=== PATIENT | male | born 1950 | race Caucasian/White ===

== ENCOUNTER 2018-09-03 18:24 | Emergency (ER) | payer MEDICARE ==
[2018-09-03 19:55] LABS: #Basophils 0.1 thou/uL (0.0-0.2); #Eosinphils 0.3 thou/uL (0.0-0.7); #Lymphocytes 1.9 thou/uL (1.20-3.40); #Monocytes 0.9 thou/uL (0.11-0.59); #Neutrophils 5.6 thou/uL (1.40-6.50); %Eosinophils 2.9 % (0.0-10.0); %Lymphocytes 22.3 % (21.0-51.0); %Monocytes 10.1 % (0.0-10.0); %Neutrophils 63.7 % (42.0-75.0); Hemoglobin 14.2 g/dL (14.0-18.0); Mean Corpuscular HGB CONC 32.5 g/dL (32.0-36.0); Mean Corpuscular Hemoglobin 28.4 pg (27.0-31.0); Mean Corpuscular Volume 87.2 fL (78.0-98.0); Mean Platelet Volume 7.1 fL (7.4-10.4); Platelet Count 286 thou/uL (130-400); RBC Distribution Width 13.1 % (11.5-14.5); White Blood Cell (WBC) Count 8.7 thou/uL (4.8-10.8)
[2018-09-03 20:09] LABS: ALT (SGPT) 9 U/L (8-55); AST (SGOT) 11 U/L (5-34); Albumin 4.1 g/dL (3.4-4.8); Alkaline Phosphatase 62 U/L (40-150); Anion Gap 16 mmol/L (10-20); BUN (Urea Nitrogen) 11 mg/dL (8.4-25.7); Bilirubin, Total 0.4 mg/dL (0.2-1.2); Calc. Creatinine Clearance 0 mL/min (70-130); Calcium 9.3 mg/dL (7.8-10.44); Carbon Dioxide 25 mmol/L (23-31); Chloride 97 mmol/L (98-107); Estimated GFR-MDRD 72; Globulin 3.1 g/dL (2.4-3.5); Glucose 179 mg/dL (80-115); Potassium 3.4 mmol/L (3.5-5.1); Protein, Total 7.2 g/dL (5.8-8.1); Sodium 135 mmol/L (136-145)
[2018-09-03 20:11] LABS: CKMB 2.5 ng/mL (0-6.6)
[2018-09-03 20:47] LABS: PTT 27.6 SEC (22.9-36.1); Prothrombin Time 12.9 SEC (12.0-14.7)
[2018-09-03] MEDS ORDERED: Ondansetron HCl/PF 4 MG/2 ML Vial ONE (21:02)
--- NOTE | 2018-09-03 21:06 | CT ---
CT OF BRAIN PERFORMED WITHOUT CONTRAST ENHANCEMENT: 09/03/18 HISTORY: Fall. There is a large right sided subdural hematoma. This is an acute on chronic subdural hematoma. It is associated with approximately 10 mm of shift of midline structures to the left. No intraparenchymal h emorrhage. IMPRESSION: Large right acute on chronic subdural hematoma causing approximately 10 mm of shift of midline struct ures to the left. Findings telephoned to Dr. Turcios. POS: [facility]
== END 2018-09-03 21:05 | disposition short-term general hospital (02) ==
LOC: MADERS 18:24
DX: S06.5X0A Traumatic subdural hemorrhage without loss of consciousness, initial encounter (principal); F31.9 Bipolar disorder, unspecified; I25.10 Atherosclerotic heart disease of native coronary artery without angina pectoris; E11.9 Type 2 diabetes mellitus without complications; I10 Essential (primary) hypertension; Z79.84 Long term (current) use of oral hypoglycemic drugs; Z79.899 Other long term (current) drug therapy; W19.XXXA Unspecified fall, initial encounter
CPT/HCPCS: 51702; 70450; 71045; 80053; 82553; 84484; 85025; 85610; 85730; 93005; 94760; 96374; J2405

== ENCOUNTER 2018-09-15 12:48 | Emergency (ER) | payer MEDICARE ==
--- NOTE | 2018-09-15 13:55 | CT ---
CT BRAIN WITHOUT IV CONTRAST: HISTORY: A 67-year-old male with a history of a head injury. The patient had bur holes placed about one week ago with a fall and injury approximately three hours ago. COMPARISON: 09/03/2018 FINDINGS: There are right-sided bur holes. There is a persistent but smaller large right-sided subdural hemato ma with no evidence for acute hemorrhagic change. There is approximately 0.6 cm of midline shift, co mpared to the 1.0 cm of midline shift on the 09/03/2018 preoperative study. There is bilateral sinus mucosal disease. The mastoids appear to be clear. IMPRESSION: 1. Persistent but smaller right-sided subdural hematoma with no evidence for acute hemorrhage. 2. No evidence for other acute hemorrhage, intracranially. 3. Less midline shift to the left. Continued followup for continued improvement. 4. No significant new posttraumatic process. POS: [facility]
== END 2018-09-15 14:00 | disposition home or self-care (01) ==
LOC: MADERS 12:48
DX: R51 Headache (principal); E11.9 Type 2 diabetes mellitus without complications; I25.2 Old myocardial infarction; I25.10 Atherosclerotic heart disease of native coronary artery without angina pectoris; I10 Essential (primary) hypertension; F31.9 Bipolar disorder, unspecified; Z79.84 Long term (current) use of oral hypoglycemic drugs; Z79.899 Other long term (current) drug therapy; W19.XXXA Unspecified fall, initial encounter
CPT/HCPCS: 70450

== ENCOUNTER 2018-10-19 19:49 | Emergency (ER) | payer MEDICARE ==
--- NOTE | 2018-10-19 22:45 | CT ---
CT OF THE HEAD WITHOUT CONTRAST: 10/19/18 COMPARISON: 09/15/18 HISTORY: Fall, trauma, pain. TECHNIQUE: Axial CT imaging at 5 mm intervals from vertex through skull base without contrast. Coronal and sagit xavi reformatted imaging obtained. FINDINGS: The patient has a history of right sided subdural hematoma which was seen on 09/03/18 and 09/15/18 ex aminations. There are wallace holes in the right frontal bone near the vertex treating the right subdura l hematoma. The most recent prior examination performed 09/15/18 was a postoperative study. On today' s examination, there is a subdural hematoma which is hemispheric in nature on the right extending fro m the level of the vertex to the axial level of the third ventricle. When compared to the most recent 09/15/18 examination, the volume of subdural blood on the right is slightly increased, measuring 1.9 cm in greatest transverse dimension posteriorly on the right near the vertex, previously measuring u p to approximately 1.5 cm. In addition, the subdural blood anterior to the right frontal lobe on axia l image 16 measures approximately 8 mm while previously measuring approximately 6 mm in this region. The degree of mass effect on the frontal lobe on the right appears increased on the coronal reformat jesika imaging as well. There is new linear hyperdensity within the subdural space medially on the right which may signify ac jaleesa blood. There is midline shift from right to left which measures approximately 5 mm, grossly unchanged. In ad dition, subdural blood on this examination is isodense, while previously hypodense, which also may re flect new hemorrhage. No left sided subdural hematoma. The imaged paranasal sinuses/mastoid air cells appear well aerated. No displaced calvarial fracture. There is focal soft tissue swelling posteriorly near the vertex on the left, likely associated with a cute hemorrhage. IMPRESSION: Isodense/hyperdense right subdural hematoma, slightly more prominent than on the 09/15/18 examination suggesting mild interval increase in subdural hematoma. No significant change in right to left midli ne shift. Dr. Salas made aware at 11:35pm 10/19/2018. POS: [facility]
== END 2018-10-19 21:18 | disposition short-term general hospital (02) ==
LOC: MADERS 19:49
DX: S06.2X0A Diffuse traumatic brain injury without loss of consciousness, initial encounter (principal); I10 Essential (primary) hypertension; E11.9 Type 2 diabetes mellitus without complications; F31.9 Bipolar disorder, unspecified; I25.10 Atherosclerotic heart disease of native coronary artery without angina pectoris; Z79.899 Other long term (current) drug therapy; Z79.84 Long term (current) use of oral hypoglycemic drugs; Z79.891 Long term (current) use of opiate analgesic; W18.30XA Fall on same level, unspecified, initial encounter
CPT/HCPCS: 70450